=== PATIENT | female | born 1985 | race Caucasian/White ===

== ENCOUNTER → 2022-01-23 | Day surgery (SDC) | payer OTHER ==
[~2022-01-23] VITALS: Ht 157.5 cm; Wt 76.2 kg
[~2022-01-23] MED LIST: ACETAMINOPHEN 325 MG TABLET. PO ONE; BUPIVACAINE MPF 0.5% 30 ML VIAL. ONE; DEXAMETHASONE SOD PHOS 4 MG/ML VIAL ONE; GABAPENTIN 100 MG CAPSULE. PO ONE; HYDROcodone/APAP 5/325MG 1 TAB TABLET ONE; HYDROcodone/APAP 5/325MG 1 TAB TABLET PO ONE; HYDROmorphone 2 MG/ML INJ. IVP PRN; IV RINGERS,LACTATED 1000ML 1,000 ML IV SCH; LIDOCAINE 2% PF 5 ML VIAL. ONE; MIDAZOLAM HCL/PF 2 MG/2 ML VIAL. ONE; MORPHINE SULFATE 2 MG/ML INJ. IVP PRN; ONDANSETRON PF 4 MG/2 ML VIAL. IVP ONE; ONDANSETRON PF 4 MG/2 ML VIAL. ONE; PROCHLORPERAZINE 10 MG/2 ML VIAL. IVP PRN; PROCHLORPERAZINE 10 MG/2 ML VIAL. ONE; PROPOFOL 10 MG/ML (20ML) VIAL. IV ONE; fentaNYL PF VIAL 100 MCG/2 ML VIAL IVP PRN; fentaNYL PF VIAL 100 MCG/2 ML VIAL ONE; oxyCODONE/APAP 5/325 1 TAB TABLET PO ONE
[2022-01-23 07:34] VITALS: BP 111/56
--- NOTE | 2022-01-23 08:14 | SSS ---
DATE OF SERVICE: 01/23/2022 ADMIT DATE: 01/23/2022 CHIEF COMPLAINT: Left ankle ganglion cyst. HISTORY OF PRESENT ILLNESS: The patient is a pleasant 36-year-old female who is here today for elective surgery on a left lateral aspect ganglion cyst on her left ankle. We have been requested to evaluate the patient prior to surgery. PAST MEDICAL HISTORY: Cold urticaria. ALLERGIES: SULFA. FAMILY HISTORY: Hypertension. SOCIAL HISTORY: She does not drink, smoke or take drugs. 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 MEDICATIONS: Reviewed, please refer to the MRAD. REVIEW OF SYSTEMS: GENERAL: No history of weight change, weakness or fevers. SKIN: No bruising, hair changes or rashes. EYES: No blurred, double or loss of vision. NOSE AND THROAT: No history of nosebleeds, hoarseness or sore throat. HEART: No history of palpitations, chest pain or shortness of breath on exertion. LUNGS: Denies cough, hemoptysis, wheezing or shortness of breath. GASTROINTESTINAL: Denies changes in appetite, nausea, vomiting, diarrhea or constipation. GENITOURINARY: No history of frequency, urgency, hesitancy or nocturia. NEUROLOGIC: Denies history of numbness, tingling, tremor or weakness. PSYCHIATRIC: No history of panic, anxiety or depression. ENDOCRINE: No history of heat or cold intolerance, polyuria or polydipsia. EXTREMITIES: Denies muscle weakness, joint pain, pain on walking or stiffness. PHYSICAL EXAMINATION: VITALS: Within normal limits and are stable. GENERAL: No apparent distress. Alert and oriented. HEENT: Normal cephalic atraumatic, external auditory canals are patent EYES: Extraocular muscles are intact, pupils are equally round and reactive to light and accommodation MUSCULOSKELETAL: Well developed, well nourished, good range of motion ENDOCRINE: No thyromegaly was palpated LYMPHATICS: No cervical chain or axillary nodes were noted HEMATOPOIETIC: No bruising NECK: Supple, no JVD, no thyromegaly was noted. LUNGS: Clear to auscultation in all lung anguiano without rhonchi or wheezing. HEART: RRR, S1, S2 present. Peripheral pulses intact, no obvious murmurs were noted. ABDOMEN: Soft, nontender. Positive bowel sounds no organomegaly, normal bowel sounds. EXTREMITIES: She has a ganglion cyst on the lateral aspect of her left ankle. NEUROLOGIC: Normal speech, normal tone. A and O x 3, moves all extremities, no obvious focal deficits. PSYCHIATRIC: Normal affect, normal mood. Stable. SKIN: No ulcerations or rashes, good skin turgor, no jaundice. VASCULAR: Good capillary refill, neurovascular bundle appears to be intact. ASSESSMENT AND PLAN: Left ankle ganglion cyst. Clinically, she seems stable for surgery. 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 Thank you very much for allowing us to participate in the care of this nice lady. ADAN DR: Griffin TID: [id number]
--- NOTE | 2022-01-23 11:41 | PDOC4 ---
OPERATIVE NOTE Date: Date: Jan 23, 2022 Pre-Op Diagnosis: Left foot soft tissue mass Post-Op Diagnosis: Same as above Procedure Performed: Left soft tissue mass excision and pathology study Surgeon: Gillian Antonio DPM Anesthesia Type: General Blood Loss: 5 cc Specimans Obtained: Soft tissue mass from the left sinus tarsi sent for pathology Findings: Soft tissue mass that is well encapsulated with clear viscous fluid filled in the center, Measures approximately 3 x 2 cm. The soft tissue mass extended from the sinus tarsi, not from the peroneal tendon sheath. There is no significant subtalar joint synovitis, or OCD lesion. Complications: None Operative Note: Under mild sedation, patient was brought into the operating room and placed on operating table in a supine position. A formal timeout confirming patient's identity, procedure, procedure site was carried out. Following IV prophylactic antibiotics, general anesthesia, a well-padded High ankle tourniquet was placed on the left lower extremity. The left lower extremity was then scrubbed, prepped and draped using aseptic techniques. The left lower extremity was exsanguinated and then the tourniquet was inflated to 225 mill mercury. The attention was directed to the dorsal lateral sinus tarsi where the soft tissue was palpated. And and intraoperative sterile ultrasound was used to confirm the location of the soft tissue mass which was near the sinus tarsi, not off the peroneal tendons. The intraoperative foot x-ray from multiple views were insignificant for periarticular osteophyte or osseous prominence at the sinus tarsi region.Then a linear incision was made over the soft tissue mass along the sinus tarsi. The incision was carried deep with a combination of sharp and blunt dissection with care to protect and retract all the neurovascular bundles. The soft tissue mass was encountered and noted well enc apsulated just dorsal to the peroneal tendons. The surrounding soft tissue was carefully elevated off the soft tissue mass in the soft tissue mass was noted extended from the sinus tarsi capsule. The lateral sinus tarsi capsule was excised along with the soft tissue mass in toto. The soft tissue mass was measured 2 x 3 cm. There was clear viscous fluid noted within the soft tissue mass as well. At this time, the sinus tarsi was insignificant for synovitis, OCD lesion. The peroneal tendons were intact. The EDB/EHB muscle bellies were intact. There was no extension to the CC joint. The surgical site was irrigated with copious saline solution. Bovie was used to cauterize the lateral sinus tarsi capsule, extensor tendons and belly. 3-0 Vicryl was used to close the lateral subtalar joint capsule. 4-0 Monocryl and 4 nylon were used for layered skin closure under minimal tension. 5 cc of 0.25% Marcaine plain was infiltrated to the surgical site for postoperative anesthesia. The surgical site was dressed with Xeroform, gauze, Kerlix and Jigar compression. Tourniquet was deflated and adequate digital perfusion was noted. Patient tolerated the procedure and anesthesia well and then transferred to PACU for continuous recovery. GILLIAN ANTONIO DPM Jan 23, 2022 11:41
--- NOTE | 2022-01-24 16:11 | PATHOLOGY ---
[facility] Accession Number: [id number] . 01 Material submitted: . foot - LEFT FOOT SINUS TARSI SOFT TISSUE MASS. Modifiers: left . 02 Diagnosis: Segment of dense fibroconnective, fibroadipose, and synovial tissue, left foot sinus tarsi soft tissue mass: - Ganglion cyst. (JPM:jose; 01/24/2022) MBR 01/24/2022 1410 Local . 02 Electronically signed: . Giovanni Gorman MD, Pathologist NPI- [id number] . 01 Gross description: . The specimen is received in formalin, labeled "Karol Matthew, left foot sinus tarsi soft tissue mass". Received is an unoriented irregularly shaped, pale yellow to white-mosley segment of soft tissue measuring 2.6 x 1.9 x 0.8 cm in greatest dimension. The specimen is serially sectioned and entirely submitted in cassette A1-A2. ([facility]; 01/23/2022) NRI/NRI 01/24/2022 1409 Local . 02 Pathologist provided ICD-10: M67.472 . 02 CPT . 084875 Specimen Comment: A courtesy copy of this report has been sent to [phone], [phone] Specimen Comment: [id number] Specimen Comment: Report sent to / DR LEE Specimen Comment: A duplicate report has been generated due to demographic updates. Performed at: 01 [facility] [address] [id number] MD Elijah Hobbs MD Phone: [phone] Performed at: 02 [facility] [address] [place], [place] [id number] MD Giovanni Gorman MD Phone: [phone]
== END | disposition home or self-care (01) ==
LOC: SURG 07:07
PROVIDERS: ATTEND Podiatrist
DX: M67.472 Ganglion, left ankle and foot (principal); Z85.828 Personal history of other malignant neoplasm of skin; Z79.899 Other long term (current) drug therapy; Z98.890 Other specified postprocedural states; Z88.2 Allergy status to sulfonamides; Z88.8 Allergy status to other drugs, medicaments and biological substances
CPT/HCPCS: 28039; 81025; 88304; A4209; A4930; A6223; A6253; A6402; A6449; J0690; J0780; J1100; J2250; J2405; J2704; J3010; J3490